=== PATIENT | male | born 1955 | race Caucasian/White ===

== ENCOUNTER 2018-12-25 07:32 | Emergency (ER) | payer BC, OTHER ==
[~2018-12-25] VITALS: Ht 175.3 cm; Wt 81.6 kg
[~2018-12-25 07:32] MED LIST: ASPI-807 PO; ESCI5TAB PO; METO25TA4 PO
[2018-12-25] MEDS ORDERED: LIDOCAINE 1% INJ 50 ML MDV IJ ONE ×2 (07:57→08:00)
--- NOTE | 2018-12-25 08:00 | NUR ---
LEFT RING FINGER LAC WHILE OPENING A CAN OF DOG FOOD. ON ROOM AIR, BREATHING EVENLY AND UNLABORED. WILL CONTINUE TO MONITOR ACCORDINGLY.
[2018-12-25 10:50] VITALS: BP 115/81
--- NOTE | 2018-12-25 10:51 | NUR ---
Patient discharged to home in stable condition. Written and verbal after care instructions given. Patient verbalizes understanding of instruction.
== END 2018-12-25 10:50 | disposition home or self-care (01) ==
LOC: ER 07:40
DX: S61.215A Laceration without foreign body of left ring finger without damage to nail, initial encounter (principal); I10 Essential (primary) hypertension; Z79.899 Other long term (current) drug therapy; Z79.82 Long term (current) use of aspirin; W26.8XXA Contact with other sharp object(s), not elsewhere classified, initial encounter; Y93.89 Activity, other specified; Y92.89 Other specified places as the place of occurrence of the external cause; Y99.8 Other external cause status
CPT/HCPCS: 12001; 99283; A6403; J3490